=== PATIENT | male | born 1950 | race Caucasian/White ===

== ENCOUNTER → 2017-07-30 | Outpatient (CLI) | payer MEDICARE, BC | LOC: M RAD 08:34 | DX: J32.0 Chronic maxillary sinusitis (principal); J34.2 Deviated nasal septum; K09.1 Developmental (nonodontogenic) cysts of oral region | CPT/HCPCS: 70486 ==

== ENCOUNTER 2017-10-21 10:32 | Emergency (ER) | payer MEDICARE, BC ==
[2017-10-21 11:54] LABS: KETONE, URINE AUTO RFX NEGATIVE (NEGATIVE); MUCUS, URINE RFX SMALL (NEGATIVE); NITRITE, URINE AUTO RFX NEGATIVE (NEGATIVE); RBC, URINE AUTO RFX 80 /HPF (0-3); SPECIFIC GRAVITY UR AUTO RFX 1.015 (1.002-1.035); SQUAM EPITHELIAL CELL UR AURFX 0 /HPF (0-6); TRANSITIONAL EPITHELIAL AU RFX 1 /HPF
[2017-10-21 11:55] LABS: LEUKOCYTE ESTERASE UR AUTO RFX 3+ (NEGATIVE); WBC, URINE AUTO RFX TNTC /HPF (0-3)
[2017-10-21 12:13] LABS: ANION GAP 6 MEQ/L (8-16); BLOOD UREA NITROGEN 14 MG/DL (7-18); CALCIUM LEVEL 9.1 MG/DL (8.8-10.2); CARBON DIOXIDE LEVEL 26 MEQ/L (21-32); CHLORIDE LEVEL 113 MEQ/L (98-107); CREATININE FOR GFR 1.11 MG/DL (0.70-1.30); GLOMERULAR FILTRATION RATE > 60.0 (>49); GLUCOSE, FASTING 82 MG/DL (70-100); POTASSIUM SERUM 3.6 MEQ/L (3.5-5.1); SODIUM LEVEL 145 MEQ/L (136-145)
== END 2017-10-21 13:33 | disposition home or self-care (01) ==
LOC: M ED 10:32
DX: N39.0 Urinary tract infection, site not specified (principal); R31.9 Hematuria, unspecified; I10 Essential (primary) hypertension; N40.0 Benign prostatic hyperplasia without lower urinary tract symptoms; Z87.440 Personal history of urinary (tract) infections; Z86.73 Personal history of transient ischemic attack (TIA), and cerebral infarction without residual deficits; Z79.899 Other long term (current) drug therapy; Z79.890 Hormone replacement therapy; Z91.041 Radiographic dye allergy status
CPT/HCPCS: 80048

== ENCOUNTER → 2017-11-19 | Outpatient (CLI) | payer MEDICARE, BC ==
[2017-11-19 11:58] LABS: APPEARANCE, URINE CLEAR (CLEAR); BACTERIA, URINE AUTO NEGATIVE (NEGATIVE); BILIRUBIN, URINE AUTO NEGATIVE (NEGATIVE); BLOOD, URINE BLOOD NEGATIVE (NEGATIVE); COLOR, URINE YELLOW (YELLOW); GLUCOSE, URINE (UA) AUTO NEGATIVE (NEGATIVE); KETONE, URINE AUTO NEGATIVE (NEGATIVE); LEUKOCYTE ESTERASE, URINE AUTO NEGATIVE (NEGATIVE); NITRITE, URINE AUTO NEGATIVE (NEGATIVE); PROTEIN, URINE AUTO NEGATIVE (NEGATIVE); RBC, URINE AUTO 0 /HPF (0-3); SPECIFIC GRAVITY URINE AUTO 1.018 (1.002-1.035); SQUAMOUS EPITHELIAL CELL UR AU 0 /HPF (0-6); WBC, URINE AUTO 1 /HPF (0-3)
[2017-11-19 13:58] LABS: PSA SCREENING 1.49 NG/ML (< 4.0)
== END ==
LOC: M SMT 10:31
DX: N40.1 Benign prostatic hyperplasia with lower urinary tract symptoms (principal); Z12.5 Encounter for screening for malignant neoplasm of prostate; Z87.440 Personal history of urinary (tract) infections
CPT/HCPCS: G0103

== ENCOUNTER 2018-08-04 10:04 | Day surgery (SDC) | payer MEDICARE, BC ==
[~2018-08-04] VITALS: Ht 170.2 cm; Wt 78.5 kg
[2018-08-04] MEDS: NS 1,000 ML IV SCH ×2 (08:15→12:41)
[~2018-08-04 10:04] MED LIST: ACET65TA; AMLO5TAB6 PO; ATOR40TA75 PO; CIPR-249 PO; FINA5TAB2 PO; FLOM0.4C39; FLOM0.4C39 PO; HYDR-2541 PO; LEVA500T; LEVO75TA4 PO; LOPR1TAB6 PO; LOSA100T50 PO; LOTREL; METO1TAB32 PO; METO1TAB7 PO; POTA20TA2; PRAV40TA; PROS5TAB; PYRI1TAB5 PO; SYNT88TA2 PO; TAMS0.4C2 PO
[2018-08-04] MEDS ORDERED: LIDOCAINE 2% INJ 100 MG/5 ML SDV (FOR ANES.) As Ordered ONE (12:06)
[2018-08-04] MEDS ORDERED: PROPOFOL 500 MG/50 ML VIAL As Ordered ONE (12:06)
--- NOTE | 2018-08-04 12:14 | ROOR ---
Patient Name: Luisito Hollis Procedure Date: 08/04/2018 11:54 AM Date of : 1950 Age: 67 Room: [facility] Gender: Male Note Status: Finalized Procedure: Colonoscopy Indications: High risk colon cancer surveillance: Personal history of colonic polyps Providers: Dimas Mcpherson Jr, MD Referring MD: FER BAUTISTA JR, MD Requesting Provider: Medicines: Propofol per Anesthesia Complications: No immediate complications. Procedure: Pre-Anesthesia Assessment: - Prior to the procedure, a History and Physical was performed, and patient medications and allergies were reviewed. The patient is competent. The risks and benefits of the procedure and the sedation options and risks were discussed with the patient. All questions were answered and informed consent was obtained. Patient identification and proposed procedure were verified by the physician and the nurse in the pre-procedure area and in the procedure room. Mental Status Examination: alert and oriented. Airway Examination: normal oropharyngeal airway and neck mobility. Respiratory Examination: clear to auscultation. CV Examination: normal. ASA Grade Assessment: II - A patient with mild systemic disease. After reviewing the risks and benefits, the patient was deemed in satisfactory condition to undergo the procedure. The anesthesia plan was to use moderate sedation / analgesia (conscious sedation). Immediately prior to administration of medications, the patient was re-assessed for adequacy to receive sedatives. The heart rate, respiratory rate, oxygen saturations, blood pressure, adequacy of pulmonary ventilation, and response to care were monitored throughout the procedure. The physical status of the patient was re-assessed after the procedure. The Colonoscope was introduced through the anus and advanced to the cecum, identified by appendiceal orifice and ileocecal valve. The colonoscopy was performed without difficulty. The patient tolerated the procedure well. The quality of the bowel preparation was adequate. Findings: The rectum, recto-sigmoid colon, sigmoid colon, descending colon, transverse colon, cecum, appendiceal orifice and ileocecal valve appeared normal. A small polyp was found in the ascending colon. The polyp was removed with a hot snare. Resection and retrieval were complete. External and internal hemorrhoids were found during endoscopy. The hemorrhoids were moderate, Grade II (internal hemorrhoids that prolapse but reduce spontaneously) and Grade III (internal hemorrhoids that prolapse but require manual reduction). Impression: - The rectum, recto-sigmoid colon, sigmoid colon, descending colon, transverse colon, cecum, appendiceal orifice and ileocecal valve are normal. - One small polyp in the ascending colon, removed with a hot snare. Resected and retrieved. - External and internal hemorrhoids. Recommendation: - Discharge patient to home (ambulatory). - Repeat colonoscopy in 5 years for surveillance. Dimas Mcpherson MD Dimas Mcpherson Jr, MD 08/04/2018 12:14:03 PM Electronically signed by Dimas Mcpherson Jr, MD Number of Addenda: 0 Note Initiated On: 08/04/2018 11:54 AM Estimated Blood Loss: Estimated blood loss: none.
[2018-08-04 12:30] VITALS: BP 152/88
== END 2018-08-04 12:44 | disposition home or self-care (01) ==
LOC: M OPP 10:04
PROVIDERS: ATTEND Surgery
DX: D12.2 Benign neoplasm of ascending colon (principal); K64.1 Second degree hemorrhoids; K64.2 Third degree hemorrhoids; Z86.010 Personal history of colon polyps

== ENCOUNTER → 2018-10-03 | Outpatient (CLI) | payer MEDICARE, BC | LOC: M SMT 10:37 | PROVIDERS: ATTEND Nurse Practitioner Family | DX: Z12.5 Encounter for screening for malignant neoplasm of prostate (principal) | CPT/HCPCS: 36415; G0103 ==

== ENCOUNTER → 2019-02-28 | Outpatient (REF) | payer MEDICARE, BC ==
[2019-02-28 19:15] LABS: APPEARANCE, URINE CLOUDY (CLEAR); BACTERIA, URINE AUTO 1+ (NEGATIVE); BILIRUBIN, URINE AUTO NEGATIVE (NEGATIVE); BLOOD, URINE BLOOD 3+ (NEGATIVE); COLOR, URINE YELLOW (YELLOW); GLUCOSE, URINE (UA) AUTO NEGATIVE (NEGATIVE); KETONE, URINE AUTO TRACE mg/dL (NEGATIVE); LEUKOCYTE ESTERASE, URINE AUTO 3+ (NEGATIVE); MUCUS, URINE SMALL (NEGATIVE); NITRITE, URINE AUTO NEGATIVE (NEGATIVE); PROTEIN, URINE AUTO 1+ mg/dL (NEGATIVE); RBC, URINE AUTO 76 /HPF (0-3); SPECIFIC GRAVITY URINE AUTO 1.027 (1.002-1.035); SQUAMOUS EPITHELIAL CELL UR AU 0 /HPF (0-6); UROBILINOGEN, URINE AUTO 0.2 mg/dL (0.0-2.0); WBC, URINE AUTO TNTC /HPF (0-3)
== END ==
LOC: M SMT 17:30
PROVIDERS: ATTEND Nurse Practitioner Family
DX: N39.43 Post-void dribbling (principal)

== ENCOUNTER 2019-03-01 17:18 | Emergency (ER) | payer MEDICARE, BC ==
[~2019-03-01] VITALS: Ht 170.2 cm; Wt 81.8 kg
[2019-03-01 17:52] LABS: APPEARANCE, URINE TURBID (CLEAR); BACTERIA, URINE AUTO 2+ (NEGATIVE); BILIRUBIN, URINE AUTO NEGATIVE (NEGATIVE); BLOOD, URINE BLOOD 3+ (NEGATIVE); COLOR, URINE AMBER (YELLOW); GLUCOSE, URINE (UA) AUTO NEGATIVE (NEGATIVE); KETONE, URINE AUTO NEGATIVE (NEGATIVE); LEUKOCYTE ESTERASE, URINE AUTO 3+ (NEGATIVE); NITRITE, URINE AUTO NEGATIVE (NEGATIVE); PROTEIN, URINE AUTO 3+ mg/dL (NEGATIVE); RBC, URINE AUTO TNTC /HPF (0-3); SPECIFIC GRAVITY URINE AUTO 1.017 (1.002-1.035); SQUAMOUS EPITHELIAL CELL UR AU 0 /HPF (0-6); TRANSITIONAL EPITHELIAL AUTO 1 /HPF; WBC, URINE AUTO TNTC /HPF (0-3)
[2019-03-01 18:26] LABS: BASO % 0.3 % (0.0-1.0); EOS % 0.1 % (0.0-3.0); HEMATOCRIT 38.2 % (42.0-52.0); HEMOGLOBIN 13.1 g/dl (13.5-17.5); LYMPH # 1.3 10^3/uL (1.5-5.0); LYMPH % 8.5 % (24.0-44.0); MEAN CORPUSCULAR HEMOGLOBIN 32.8 pg (27.0-33.0); MEAN CORPUSCULAR HGB CONC 34.3 g/dl (32.0-36.5); MEAN CORPUSCULAR VOLUME 95.7 fl (80.0-96.0); MONO # 1.4 10^3/uL (0.0-0.8); MONO % 9.3 % (0.0-5.0); NEUTROPHILS # 12.4 10^3/uL (1.5-8.5); NEUTROPHILS % 81.3 % (36.0-66.0); PLATELET COUNT, AUTOMATED 165 10^3/uL (150-450); RED BLOOD COUNT 3.99 10^6/uL (4.30-6.10); WHITE BLOOD COUNT 15.3 10^3/uL (4.0-10.0)
[2019-03-01 18:51] LABS: ALBUMIN 3.5 GM/DL (3.2-5.2); BILIRUBIN,DIRECT 0.3 MG/DL (0.0-0.2); BILIRUBIN,TOTAL 0.9 MG/DL (0.2-1.0); TOTAL PROTEIN 6.4 GM/DL (6.4-8.2)
--- NOTE | 2019-03-01 20:58 | REPVR ---
PROCEDURE INFORMATION: Exam: US Pelvis Limited, Male Exam date and time: 03/01/2019 8:21 PM Age: 68 years old Clinical history: Bladder; Urine retention; Additional info: Difficulty urinating TECHNIQUE: Imaging protocol: Real-time pelvic ultrasound with image documentation. COMPARISON: No relevant prior studies available. FINDINGS: Bladder: Normal appearance of the distended urinary bladder with bilateral ureteral jets seen. Elevated bladder postvoid residual volume 138 cc. IMPRESSION: Elevated bladder postvoid residual volume 138 cc. Electronically signed by: Navneet Guerrero On 03/01/2019 20:57:59 PM
[2019-03-01] MEDS ORDERED: CIPR-249 PO (21:20)
[2019-03-01] MEDS ORDERED: CIPROFLOXACIN 500 MG TAB PO ONE (21:30)
[2019-03-01] MEDS ORDERED: LIDOCAINE 2% 5ML JELLY UROJET TOP ONE (21:30)
[2019-03-01 21:40] VITALS: BP 132/86
== END 2019-03-01 22:10 | disposition home or self-care (01) ==
LOC: M ED 17:18
DX: N39.0 Urinary tract infection, site not specified (principal); I10 Essential (primary) hypertension; E78.5 Hyperlipidemia, unspecified; I63.59 Cerebral infarction due to unspecified occlusion or stenosis of other cerebral artery; N40.0 Benign prostatic hyperplasia without lower urinary tract symptoms; Z86.73 Personal history of transient ischemic attack (TIA), and cerebral infarction without residual deficits; E03.9 Hypothyroidism, unspecified; Z79.899 Other long term (current) drug therapy

== ENCOUNTER → 2019-10-04 | Outpatient (CLI) | payer MEDICARE, BC | LOC: M PLALAB 10:17 | PROVIDERS: ATTEND Nurse Practitioner Family | DX: Z12.5 Encounter for screening for malignant neoplasm of prostate (principal) | CPT/HCPCS: 36415; 51798; G0103; G0463 ==

== ENCOUNTER → 2020-02-28 | Outpatient (REF) | payer MEDICARE, BC ==
[~2020-02-28] MED LIST changes: +AMLO1TAB24 PO; -AMLO5TAB6 PO
[2020-02-28 18:01] LABS: APPEARANCE, URINE TURBID (CLEAR); BACTERIA, URINE AUTO 1+ (NEGATIVE); BILIRUBIN, URINE AUTO NEGATIVE (NEGATIVE); BLOOD, URINE BLOOD 3+ (NEGATIVE); COLOR, URINE AMBER (YELLOW); GLUCOSE, URINE (UA) AUTO NEGATIVE (NEGATIVE); KETONE, URINE AUTO NEGATIVE (NEGATIVE); LEUKOCYTE ESTERASE, URINE AUTO 3+ (NEGATIVE); NITRITE, URINE AUTO NEGATIVE (NEGATIVE); PROTEIN, URINE AUTO 2+ mg/dL (NEGATIVE); RBC, URINE AUTO 99 /HPF (0-3); RENAL EPITHELIAL CELLS 2 /HPF; SPECIFIC GRAVITY URINE AUTO 1.016 (1.002-1.035); SQUAMOUS EPITHELIAL CELL UR AU 0 /HPF (0-6); TRANSITIONAL EPITHELIAL AUTO 1 /HPF; WBC, URINE AUTO TNTC /HPF (0-3)
== END ==
LOC: M SMT 17:14
PROVIDERS: ATTEND Nurse Practitioner Family
DX: N40.1 Benign prostatic hyperplasia with lower urinary tract symptoms (principal)
CPT/HCPCS: 51798; 81001; 87088; 87186; G0463

== ENCOUNTER → 2020-07-08 | Outpatient (CLI) | payer MEDICARE, BC ==
--- NOTE | 2020-07-08 13:50 | REP ---
INDICATION: F/U. COMPARISON: Latest prior comparison right hip 08/22/2011. No prior left hip for comparison. TECHNIQUE: AP pelvis standing and bilateral hip AP and frog lateral with standing AP right hip. FINDINGS: The hip prosthesis are symmetric. There is no plain film evidence of definite abnormal periprosthetic lucency seen involving either the right or left hip. There is no evidence of an acute fracture, dislocation, or subluxation. There is no change in appearance of the prostheses when static AP is compared to standing. IMPRESSION: No acute abnormality identified. Findings as described above. <Electronically signed by Cullen Jones > 07/08/20 [id number]
== END ==
LOC: M SOG 10:36
PROVIDERS: ATTEND Family Medicine
DX: Z96.643 Presence of artificial hip joint, bilateral (principal)

== ENCOUNTER 2020-08-05 10:50 | Outpatient (RCR) | payer MEDICARE, BC ==
[2020-08-14] MEDS ORDERED: OXYC1TAB23 PO ×2 (10:05→10:07)
[2020-08-14] MEDS ORDERED: NAPR-849 PO (10:05)
[2020-08-14] MEDS ORDERED: OMEP-218 PO (10:05)
[2020-08-14] MEDS ORDERED: ASPI-551 PO (10:05)
== END 2020-08-26 ==
LOC: M PT 10:50
PROVIDERS: ATTEND Orthopaedic Surgery Adult Reconstructive Orthopaedic Surgery
DX: Z51.89 Encounter for other specified aftercare (principal); Z96.643 Presence of artificial hip joint, bilateral

== ENCOUNTER → 2020-08-08 | Outpatient (CLI) | payer MEDICARE, BC | LOC: M LABSMTC 10:31 | PROVIDERS: ATTEND Anesthesiology | DX: Z01.812 Encounter for preprocedural laboratory examination (principal); Z20.822 Contact with and (suspected) exposure to COVID-19 ==

== ENCOUNTER 2020-08-13 07:53 | Inpatient (IN) | payer MEDICARE, BC ==
[2020-08-13] VITALS (7 sets, daily range): BP systolic 105–128; BP diastolic 60–70; O2SAT 93
[~2020-08-13] VITALS: Ht 170.2 cm; Wt 83.5 kg
[~2020-08-13 07:53] MED LIST changes: +ACETAMINOPHEN 500 MG TAB PO ONE; +LIDOCAINE 1% MDV 20ML VIAL SQ PRN; +LR 1,000 ML IV ONE; +NAPROXEN 250 MG TAB PO ONE; +NS 1,000 ML IV SCH; +PREGABALIN 25 MG CAP (LYRICA) PO ONE; +ROPIVA 125MG/EPINEPH 0.25MG/CLONID 40MCG/KETOR 15MG IN NS 50ML SYRINGE XX ONE; +ceFAZolin SOD 2 GM in IV 1 EA IV ONE; +dexameTHASONE 4 MG/ML 1ML VIAL (J1100 PER 1MG) IV ONE
[2020-08-13] MEDS ORDERED: TRANEXAMIC ACID INJection 1,000 MG in NS 60 ML IV ONE (09:00)
[2020-08-13] MEDS ORDERED: TRANEXAMIC ACID 100 MG/ML 10ML VIAL As Ordered ONE ×3 (11:42→13:59)
[2020-08-13] MEDS ORDERED: METOCLOPRAMIDE INJ 10MG/2ML VIAL (J2765 PER 1) As Ordered ONE ×2 (12:12→12:15)
[2020-08-13] MEDS ORDERED: ONDANSETRON 4MG/2ML VIAL As Ordered ONE (12:12)
[2020-08-13] MEDS ORDERED: MIDAZOLAM INJ 2MG/2ML VIAL (J2250 PER 1MG) As Ordered ONE (12:12)
[2020-08-13] MEDS ORDERED: dexameTHASONE 4 MG/ML 1ML VIAL (J1100 PER 1MG) As Ordered ONE ×3 (12:12→12:29)
[2020-08-13] MEDS ORDERED: LIDOCAINE 2% 100MG/5ML SDV (FOR ANES.) As Ordered ONE (12:12)
[2020-08-13] MEDS ORDERED: propofoL 200 MG/20 ML VIAL As Ordered ONE ×2 (12:12→12:29)
[2020-08-13] MEDS ORDERED: fentaNYL 250 MCG/5 ML INJECTION (J3010) As Ordered ONE (12:12)
[2020-08-13] MEDS ORDERED: ROCURONIUM BROMIDE 50 MG/5 ML VIAL As Ordered ONE (12:12)
[2020-08-13] MEDS ORDERED: SUGAMMADEX SODIUM 500 MG/5 ML VIAL (BRIDION) As Ordered ONE (12:12)
[2020-08-13] MEDS ORDERED: ePHEDrine SULFATE 25 MG/5 ML(5MG/ML) SYRINGE As Ordered ONE ×3 (12:13→14:31)
[2020-08-13] MEDS ORDERED: PHENYLephrine 500MCG 5ML (100MCG/ML) SYRINGE As Ordered ONE (14:21)
[2020-08-13] MEDS ORDERED: ONDANSETRON 4MG/2ML VIAL IV PRN ×2 (15:30→15:55)
[2020-08-13] MEDS ORDERED: fentaNYL 100 MCG/2 ML INJECTION (J3010) IV PRN (15:30)
[2020-08-13] MEDS ORDERED: oxyCODONE 5MG TAB PO PRN ×2 (15:30→15:55)
[2020-08-13] MEDS ORDERED: HYDROMORPHONE HCL 0.5 MG/ 0.5 ML SYRINGE (J1170 PER 1) IV PRN (15:30)
[2020-08-13] MEDS ORDERED: LR 1,000 ML IV SCH ×2 (15:30→15:35)
--- NOTE | 2020-08-13 15:39 | ROOPDOC ---
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 PROCEDURE: Excision and revision of scar, right hip Examination under anesthesia of acetabular component and femoral component Revision of acetabular liner Revision of femoral head SURGEON: Darci Hemphill MD MANAGER OF LOSS PREVENTION OPERATIONS: ANESTHESIA: Gen. anesthetic. ESTIMATED BLOOD LOSS: Approximately 350 mL. COMPLICATIONS: No known complications. REMARKS: Of note, the patient has had a history of a greater trochanteric fracture which was treated nonoperatively. This appeared to be a very rigid fibrous union with minimal mobility of less than 1 mm Components. [employer] [place] acetabular liner with 10 lip, 32 mm inner diameter, 60 outer diameter Femoral head 32 mm +9 Duraloc dynamic locking ring PROCEDURE NOTE: Patient was seen in the preoperative area. He had not had any change in his medical history or otherwise. His right lower extremity was marked. He was found be grossly neurovascularly intact. DESCRIPTION OF PROCEDURE: The patient was brought into the operating room and after a positive he was transferred to the operating room table in the supine position and a general anesthetic was induced. Once this was accomplished, she was transferred to the left lateral decubitus position and he was appropriately positioned with the Stulberg frame. His limbs were appropriately padded, and he had an axillary roll placed. He was then positioned with the right leg in a candycane bustillos and the right lower extremity underwent a chlorhexidine scrub followed by 2 times alcohol wash, followed by hydrogen peroxide scrub of the incision site and finally to chlorhexidine preps prior to a standard sterile prep and drape. After the sterile prep and drape. He had another chlorhexidine Y of the incision site. The original incision was demarcated with a marking pen. Surgical safety checklist was performed. The skin was incised and an ellipse of the old scar was removed. This was approximately 15-20 cm long. The skin and subcutaneous tissue were incised down to the fascia. A cautery was used to control any bleeders. The fascia was incised. There was a lot of scar tissue around this. This was cleared. The [place]dez scissors were used to open up the fascia. A Charnley retractor was placed for retraction. There was a lot of scar tissue around the greater trochanter and the abductor muscles were scarred in. This was released with electrocautery. The abductor muscles and capsule were elevated in a single layer. This took some significant findings. There is a lot of scar tissue associated with polyethylene wear and the previous surgery. A lot of the scar tissue was debrided with electrocautery. Once the joint was entered, additional scar tissue was removed and the leg was brought through to some external rotation to allow more medial access. The head was then dislocated. Some removal of scar tissue associated with the patient's previous greater trochanteric fracture treated with conservative therapy, was removed. The GT fracture. It appeared to have healed. There is some slight flexibility of less than a millimeter or so showing a rigid fibrous union. Some samples of soft tissue were taken for cultures. The head was then removed with a tamp. There is no evidence of any trunnionosis. Extensive period of time was utilized removing soft tissue from around the polyethylene liner. The polyethylene liner removal tool was then used. This had to be positioned and pressure had to be tightened on this approximately 8 times before the polyethylene was removed due to the pressure from the tool. The locking mechanism was then removed. A dental pick was used to clean out the locking mechanism ring of any backside wear material. Some of this was sent for ortho culture. There was some oozing during this. So, TXA 2 g topical was applied and let sit for 3 minutes. The new locking mechanism was placed appropriately. A replacement liner to accommodate a 32 mm head was placed with the 10 lip liner that was in there previously. This was impacted. An tested with a [place] to see if it was secure. It was not loose. The new 32 mm +9 trial head was placed and this was found to have good range of motion and stability. This was removed and the trunnion was cleansed and dried. The head was impacted. The hip was reduced and found to be stable. Thorough irrigation then occurred. The local anesthetic RACK cocktail was instilled. , A layered closure starting with #1 Vicryl to close the capsular area followed by a #1 Vicryl to close the abductors. Fascia was closed with #1 Vicryl and strata fix #1. The subcutaneous tissue was closed with #1 followed by running 2.0 and finally running 3. 0 Monocryl antibacterial. Irrigations with Betadine solution were carried out between layers. Mastisol and Steri-Strips were used to close the skin, followed by the Mepilex AG dressing.. The patient was transferred to the bed in stable condition and taken to recovery. He'll be admitted to the hospitalist service with physical therapy, etc. He will be reevaluated in the morning. I have contacted his by phone at his request. There were no known complications. DARCI HEMPHILL MD August 13, 2020 15:39
[2020-08-13 15:41] LABS: BASO % 0.3 % (0.0-1.0); EOS % 0.2 % (0.0-3.0); HEMATOCRIT 37.9 % (42.0-52.0); HEMOGLOBIN 12.7 g/dl (13.5-17.5); LYMPH # 0.9 10^3/uL (1.5-5.0); LYMPH % 9.4 % (24.0-44.0); MEAN CORPUSCULAR HGB CONC 33.5 g/dl (32.0-36.5); MEAN CORPUSCULAR VOLUME 101.3 fl (80.0-96.0); MONO # 0.2 10^3/uL (0.0-0.8); MONO % 1.7 % (2.0-8.0); NEUTROPHILS # 7.9 10^3/uL (1.5-8.5); NEUTROPHILS % 87.7 % (36.0-66.0); PLATELET COUNT, AUTOMATED 173 10^3/uL (150-450); RED BLOOD COUNT 3.74 10^6/uL (4.30-6.10)
[2020-08-13] MEDS ORDERED: MOM 30ML SUSPENSION UDC PO PRN (15:45)
[2020-08-13] MEDS ORDERED: ACETAMINOPHEN TAB 650MG DOSE (2X325MG) PO PRN (15:45)
[2020-08-13] MEDS ORDERED: MAALOX 30 ML SUSP *UDC PO PRN (15:45)
--- NOTE | 2020-08-13 15:52 | REP ---
INDICATION: S/P RIGHT HIP REVISION, PLEASE INCLUDE HARDWARE. COMPARISON: 07/08/2020 TECHNIQUE: A single AP view of the pelvis was performed. FINDINGS: Bilateral hip prosthesis are again noted. The left appears unchanged, however, the right appears more centrally aligned to the acetabulum. Examinations are technically different. No definite acute fracture number dislocation, or subluxation has developed. IMPRESSION: As above <Electronically signed by Cullen Jones > 08/13/20 [id number]
--- NOTE | 2020-08-13 15:54 | HPEPDOC ---
[facility] Medical History & Physical Date of Admission August 13, 2020 Date of Service: August 13, 2020 History and Physical Chief complaint: Who presented to [facility] for elective orthopedic procedure History of present illness: Patient is a 69-year-old male with a past medical history of bilateral hip arthroplasties completed 20-25 years ago who has presented to [facility] for elective orthopedic procedure. Patient seems primary care provider, Dr. Dell Gracia on 08/08 for medical clearance. Patient reported that over the duration of 1 year. Hes been expressing worsening right hip pain that has been limiting him from activity. Today patient had an elective right hip revision with orthopedic surgery. Patient is seen postoperatively. Currently, he denies any headache, nausea, vomiting, chest pain, shortness breath, palpitations, abdominal pain consultation, diarrhea, or urinary discomfort. He denies any recent fevers or chills. Reports his appetite is fairly normal and has experienced a slight weight gain. 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 Review of Systems: 10 point review of systems complete, all negative otherwise stated in HPI Physical exam: - Vitals: BP [141/90], HR [77], RR [20], Sat [99%RA], Temp [96.1F] - General: Lying in bed, No acute distress, Speaking in full sentences, AAOx3 - HEENT: NC, AT, PERRLA - CVS: RRR, +S1S2 - Lungs: Fair air entry bilaterally, No appreciable wheezing / rales / rhonchi - Abdomen: Soft, Non-distended, Non-tender - Extremities: No lower extremity edema, No calf tenderness, R hip with dressing in place - Neuro: No focal motor or sensory deficit - Skin: No visible rashes Labs: See below Imaging: See below EKG: See below Assessment and Plan: Right hip arthroplasty revision - Patient presented to [facility] for an elective orthopedic procedure - Has received outpatient medical cancer. His primary care provider, Dr. Dell Gracia - Pain control, anticoagulation, physical therapy and activity as per orthopedic surgery - Orthopedic surgery on consultation HTN - BP is well controlled - c/w Losartan and Amlodipine DLP - c/w Atorvastatin Hypothyroidism - c/w Levothyroxine Seasonal allergies - Currently not on any medications BPH - c/w Finasteride and Tamsulosin DVT prophylaxis - Will start TEDs/Sequentials - Chemical DVT prophylaxis as per orthopedic surgery Vital Signs Vital Signs Date Time Temp Pulse Resp B/P (MAP) Pulse Ox O2 Delivery O2 Flow Rate FiO2 08/13/20 08:19 96.1 77 20 141/90 (107) 99 Room Air Laboratory Data Labs 24H Laboratory Tests 2 08/13/20 15:29: Immature Granulocyte % (Auto) 0.7, Neutrophils (%) (Auto) 87.7H, Lymphocytes (%) (Auto) 9.4L, Monocytes (%) (Auto) 1.7L, Eosinophils (%) (Auto) 0.2, Basophils (%) (Auto) 0.3, Neutrophils # (Auto) 7.9, Lymphocytes # (Auto) 0.9L, Monocytes # (Auto) 0.2, Eosinophils # (Auto) 0.0, Basophils # (Auto) 0.0, Nucleated Red Blood Cells % (auto) 0.0 CBC/BMP Laboratory Tests 08/13/20 15:29 Microbiology Microbiology 08/13/20 Gram Stain - Final, Resulted 08/13/20 Wound Culture, Resulted Pending 08/13/20 Gram Stain - Final, Resulted 08/13/20 Wound Culture, Resulted Pending 08/13/20 Gram Stain - Final, Resulted 08/13/20 Wound Culture, Resulted Pending Home Medications Scheduled Amlodipine Besylate (Amlodipine Besylate) 5 Mg Tab, 5 MG PO QPM Atorvastatin Calcium (Atorvastatin Calcium) 40 Mg Tab, 40 MG PO QPM Finasteride (Finasteride) 5 Mg Tab, 5 MG PO DAILY Levothyroxine Sodium (Synthroid) 88 Mcg Tablet, 88 MCG PO DAILY Losartan Potassium (Losartan Potassium) 100 Mg Tab, 100 MG PO QAM Tamsulosin HCl (Flomax) 0.4 Mg Cap, 0.4 MG PO BID Allergies Coded Allergies: No Known Allergies (Unverified , 08/06/20) SIMA WILLIS MD August 13, 2020 15:54
[2020-08-13] MEDS ORDERED: SENNA 8.6 MG TAB (SENOKOT) PO PRN (15:55)
[2020-08-13] MEDS ORDERED: traMADol 50 MG TAB PO PRN ×2 (15:55)
[2020-08-13 15:57] LABS: ALBUMIN 3.5 GM/DL (3.2-5.2); ALT/SGPT 20 U/L (12-78); BILIRUBIN,TOTAL 0.7 MG/DL (0.2-1.0); BLOOD UREA NITROGEN 16 MG/DL (7-18); CARBON DIOXIDE LEVEL 22 MEQ/L (21-32); CHLORIDE LEVEL 114 MEQ/L (98-107); CREATININE FOR GFR 1.09 MG/DL (0.70-1.30); GLOMERULAR FILTRATION RATE > 60.0 (>42); GLUCOSE, FASTING 169 MG/DL (70-100); MAGNESIUM LEVEL 1.6 MG/DL (1.8-2.4); POTASSIUM SERUM 3.5 MEQ/L (3.5-5.1); SODIUM LEVEL 146 MEQ/L (136-145)
[2020-08-13] MEDS ORDERED: MAG SULF 1GM/100ML (MAG RUN) 1 GM in IV 1 EA IV ONE (16:15)
[2020-08-13] MEDS: ACETAMINOPHEN TAB 650MG DOSE (2X325MG) PO SCH ×2 (18:21→23:10)
[2020-08-13] MEDS: TAMSULOSIN 0.4 MG CAP PO SCH (20:17)
[2020-08-13] MEDS: DOCUSATE SODIUM 100MG CAPSULE PO SCH (20:17)
[2020-08-13] MEDS: NAPROXEN 250 MG TAB PO SCH (20:17)
[2020-08-13] MEDS: ceFAZolin SOD 2 GM in IV 1 EA IV SCH (20:17)
[2020-08-13] MEDS ORDERED: ATORVASTATIN 20 MG TAB PO SCH (21:00)
[2020-08-13] MEDS ORDERED: amLODIPine 5 MG TAB PO SCH (21:00)
[2020-08-13] MEDS ORDERED: DOCUSATE SODIUM 100MG CAPSULE PO SCH (21:00)
[2020-08-14 02:00] VITALS: BP 106/61
[2020-08-14] MEDS: ceFAZolin SOD 2 GM in IV 1 EA IV SCH ×2 (03:49→11:16)
[2020-08-14] MEDS: ACETAMINOPHEN TAB 650MG DOSE (2X325MG) PO SCH ×2 (05:21→11:17)
[2020-08-14 06:00] VITALS: BP 108/64
[2020-08-14] MEDS ORDERED: LEVOTHYROXINE 88MCG TABLET (0.088 MG) PO SCH (06:00)
[2020-08-14 06:32] LABS: BASO % 0.1 % (0.0-1.0); HEMATOCRIT 33.9 % (42.0-52.0); HEMOGLOBIN 11.5 g/dl (13.5-17.5); LYMPH # 0.7 10^3/uL (1.5-5.0); LYMPH % 4.9 % (24.0-44.0); MEAN CORPUSCULAR HEMOGLOBIN 33.8 pg (27.0-33.0); MEAN CORPUSCULAR HGB CONC 33.9 g/dl (32.0-36.5); MEAN CORPUSCULAR VOLUME 99.7 fl (80.0-96.0); MONO % 7.3 % (2.0-8.0); NEUTROPHILS # 11.9 10^3/uL (1.5-8.5); PLATELET COUNT, AUTOMATED 182 10^3/uL (150-450); WHITE BLOOD COUNT 13.6 10^3/uL (4.0-10.0)
[2020-08-14 07:01] LABS: BLOOD UREA NITROGEN 22 MG/DL (7-18); CALCIUM LEVEL 8.6 MG/DL (8.8-10.2); CARBON DIOXIDE LEVEL 24 MEQ/L (21-32); CHLORIDE LEVEL 109 MEQ/L (98-107); CREATININE FOR GFR 1.19 MG/DL (0.70-1.30); GLOMERULAR FILTRATION RATE > 60.0 (>42); GLUCOSE, FASTING 107 MG/DL (70-100); MAGNESIUM LEVEL 1.8 MG/DL (1.8-2.4); POTASSIUM SERUM 3.8 MEQ/L (3.5-5.1); SODIUM LEVEL 141 MEQ/L (136-145)
[2020-08-14] MEDS: DOCUSATE SODIUM 100MG CAPSULE PO SCH (08:40)
[2020-08-14] MEDS: TAMSULOSIN 0.4 MG CAP PO SCH (08:40)
[2020-08-14] MEDS: NAPROXEN 250 MG TAB PO SCH (08:40)
[2020-08-14 08:41] VITALS: BP 132/92
[2020-08-14] MEDS ORDERED: ASCORBIC ACID 500 MG TAB PO SCH (09:00)
[2020-08-14] MEDS ORDERED: LOSARTAN 50MG TABLET PO SCH (09:00)
[2020-08-14] MEDS ORDERED: FINASTERIDE 5 MG TAB PO SCH (09:00)
[2020-08-14] MEDS ORDERED: FERROUS SULFATE 325MG TAB PO SCH (09:00)
[2020-08-14] MEDS ORDERED: ASPIRIN 81MG ENTERIC TABLET PO SCH (09:00)
--- NOTE | 2020-08-14 09:02 | IPNPDOC ---
Text Note Date of Service The patient was seen on 08/14/20. NOTE Postop day 1 for head and liner revision right total hip arthroplasty The patient is doing quite well today. He states that his pain is relatively well controlled. He denies any chest pain or shortness of breath. He states that he has been up and walking with the Rollator walker independently with the nursing staff in the room this morning. He is set up at the bedside as well without any significant complaints or concerns. He does have a little bit of some thigh pain anteriorly, but overall he is doing quite well. On physical examination, the patient demonstrates grossly neurovascularly intact. Right foot and ankle. Is a palpable posterior tibial pulse. The dressing was examined. This was clean and dry without any obvious signs of staining or otherwise. X-ray imaging in PACU, was reviewed. The images did not include the entire prosthesis as I had ordered, but the acetabular components appear to be in good position. I will order a stat x-ray for the right hip prosthesis to be reviewed today. Overall, the patient is doing quite well. The plan will be for discharge home today if cleared by physical therapy. He will have home care for nursing, physical therapy and occupational therapy. He'll be seen for follow-up in the clinic in approximately 2 weeks. The dressing that is in place with stay in place for 7 days. He should try to keep this out of the stream of the shower, particularly after the dressing has been removed. Discharge Instructions Total Hip Arthroplasty 1. Pain: You may take pain as prescribed for pain. Supplement with Naproxen and Tylenol as needed. Ice pack to operative hip as tolerated. 2. Wound care: Remove dressing on postop day 7. Call [phone] with any questions or concerns. Hygiene: The patient may shower. No tub baths. Check dressing seal prior to bathing. 3. Activity: WBAT on the right lower extremity. Front wheeled walker versus crutches for ambulation. Fall precautions. Anterolateral hip precautions (NO figure of 4/crossing legs, combined external rotation/extension, combined internal rotation/abduction). 4. Driving: No driving until cleared by your surgeon. Do not drive if taking narcotic pain medications as these may make you drowsy. 5. DVT Prophylaxis: Continue taking aspirin 81 mg by mouth twice a day as prescribed for the prevention of blood clots for 4 weeks. Ankle pumps every 1 hour while awake. PANFILO hose at all times for 1 month after surgery. May remove for hygiene and wound care. 6. Placement: Plan is to discharge patient to home with home health including nursing and physical therapy. 7. Surgeon Follow-up: The patient is scheduled to be seen in Dr. Hemphill's office 2 weeks post op with xrays. 8. Primary care Follow-up: Please see your primary care provider in the next 2 to 5 weeks for general medical re-evaluation and medication review. 9. Labs: CBC without differential and BMP to be drawn on POD 3 with results to PCP and please fax to [phone]. 10. Please contact [facility] if you have any questions or concerns at [phone]. VS,Fishbone, I+O VS, Fishbone, I+O Laboratory Tests 08/13/20 15:29 08/14/20 06:05 Vital Signs Date Time Temp Pulse Resp B/P (MAP) Pulse Ox O2 Delivery O2 Flow Rate FiO2 08/14/20 06:00 97.7 66 18 108/64 (79) 98 Room Air I&O- Last 24 Hours up to 6 AM 08/14/20 06:00 Intake Total 5820 ml Output Total 750 ml Balance 5070 ml SKYLER HEMPHILL MD August 14, 2020 09:02
--- NOTE | 2020-08-14 09:06 | REP ---
INDICATION: postop x-ray evaluate for any periprosthetic fracture, other. COMPARISON: AP pelvis 08/13/2020 TECHNIQUE: AP and frog-lateral views FINDINGS: The femoral and acetabular components of the prosthesis appear well seated and well approximated. When the AP view of today's exam is compared to the AP pelvis there is no significant change. IMPRESSION: Status post right hip prosthesis as described above. <Electronically signed by Cullen Jones > 08/14/20 0902
[2020-08-14 10:00] VITALS: BP 131/90
[2020-08-14] MEDS ORDERED: ASPI-551 PO (10:05)
[2020-08-14] MEDS ORDERED: NAPR-849 PO (10:05)
[2020-08-14] MEDS ORDERED: OMEP-218 PO (10:05)
[2020-08-14] MEDS ORDERED: OXYC1TAB23 PO ×2 (10:05→10:07)
--- NOTE | 2020-08-14 10:45 | DS.PDOC ---
Discharge Summary General Date of Admission August 13, 2020 at 16:41 Date of Discharge 08/14/20 Primary Care Physician: Jr Gracia Collins Attending Physician: BRIA CHAPARRO MD Specialist/Consultants Involve: SKYLER HEMPHILL MD Discharge Summary PROCEDURES PERFORMED DURING STAY: Dr. Janelle Hemphill on 08/13/2020: - Excision and revision of scar, right hip - Examination under anesthesia of acetabular component and femoral component - Revision of acetabular liner - Revision of femoral head ADMITTING DIAGNOSES: 1. Right Hip arthroplasty revision 2. HTN 3. DLP 4. Hypothyroidism 5. Seasonal Allergies 6. BPH DISCHARGE DIAGNOSES: 1. Right Hip arthroplasty revision 2. HTN 3. DLP 4. Hypothyroidism 5. Seasonal Allergies 6. BPH COMPLICATIONS/CHIEF COMPLAINT: Failed Total Right Hip. HISTORY OF PRESENT ILLNESS: Patient is a 69 year old male with a past medical history significant for bilateral hip arthoplasties completed approximately 20-25 years ago who presented to [facility] for eleective orthopedic procedure. PAtrient was previously seen by his primary care provider, Dr. Gracia on 08/08/20 for perioperative optimization. Patient had stated that for over a year he has had worsening right hip pain that had limited his activity. The patient had been evaluated by Orthopedic surgery outpatient and was planned for a right hip revision. Patient underwent right hip revision without complication. The patient was seen post-operatively and denied any acute complaints. He was continued on pain medication and PT/OT. On post-op day one patient was doing well. He was seen by Orthopedic surgery with recommendations on discharge. He was evaluated by PT and OT prior to discharge. HOSPITAL COURSE: Right hip arthroplasty revision on 08/13/20 1. Pain: Percocet as needed for moderate to severe pain. May supplement with Naproxen and Tylenol as needed. Ice pack to operative hip as tolerated. 2. Wound care: Remove dressing on postop day 7. 3. Hygiene: May shower. No tub baths. Check dressing seal prior to bathing. 4. Activity: WBAT on the right lower extremity. Front wheeled walker versus crutches for ambulation. Anterolateral hip precautions (NO figure of 4/crossing legs, combined external rotation/extension, combined internal rotation/ab duction). 5. Driving: No driving until cleared by your surgeon. Do not drive if taking narcotic pain medications as these may make you drowsy. 6. DVT Prophylaxis: Continue taking aspirin 81 mg by mouth twice a day as prescribed for the prevention of blood clots for 4 weeks. Anticoagulation discussed with orthopedic surgery in regards to starting Xarelto. Orthopedic Surgery with recommendations to use on Aspirin BID and not Xarelto 7. Placement: Plan is to discharge patient to home with home health including nursing and physical therapy. 8. Surgeon Follow-up: The patient is scheduled to be seen in Dr. Hemphill's office 2 weeks post op with xrays. 9. Primary care Follow-up: Please see your primary care provider in the next 2 to 5 weeks for general medical re-evaluation and medication review. 10. Labs: CBC without differential and BMP to be drawn on POD 3 with results to PCP and please fax to [phone]. 11. Please contact [facility] if you have any questions or concerns at [phone]. HTN - BP is well controlled - c/w Losartan and Amlodipine DLP - c/w Atorvastatin Hypothyroidism - c/w Levothyroxine Seasonal allergies - Currently not on any medications BPH - c/w Finasteride and Tamsulosin DVT prophylaxis - Patients anticoagulation was discussed with Orthopedic Surgery in regards to starting Xarelto. - Surgical recommendation to discharge with Aspirin BID for 4 weeks and not Xarelto DISCHARGE MEDICATIONS: Please see below. ALLERGIES: Please see below. PHYSICAL EXAMINATION ON DISCHARGE: VITAL SIGNS: Please see below. GENERAL: Awake, alert ,and oriented. Appears in no acute distress. Lying comfortably in bed. HEENT: Atraumatic, normocephalic. Eyes are nonicteric. Trachea is midline NECK: No palpable cervical, axillary, or supraclavicular lymphadenopathy CARDIOVASCULAR EXAMINATION: Normal S1, S2. Regular rate and rhythm. No clicks, rubs, or murmurs RESPIRATORY EXAMINATION: Clear vesicular breath sounds bilaterally. No wheezes, rhonchi, or rhonchi. ABDOMINAL EXAMINATION: Soft, nondistended. Nontender. Normoactive bowel sounds throughout EXTREMITIES: No edema. Right hip bandaged. Full and equal pulses in bilateral upper and lower extremities SKIN: No rashes or lesions NEUROLOGICAL EXAMINATION: No focal neurological deficits PSYCHIATRIC EXAMINATION: Mood and affect appear appropriate LABORATORY DATA: Please see below. IMAGING: INDICATION: S/P RIGHT HIP REVISION, PLEASE INCLUDE HARDWARE. COMPARISON: 07/08/2020 TECHNIQUE: A single AP view of the pelvis was performed. FINDINGS: Bilateral hip prosthesis are again noted. The left appears unchanged, however, the right appears more centrally aligned to the acetabulum. Examinations are technically different. No definite acute fracture number dislocation, or subluxation has developed. IMPRESSION: As above INDICATION: postop x-ray evaluate for any periprosthetic fracture, other. COMPARISON: AP pelvis 08/13/2020 TECHNIQUE: AP and frog-lateral views FINDINGS: The femoral and acetabular components of the prosthesis appear well seated and well approximated. When the AP view of today's exam is compared to the AP pelvis there is no significant change. IMPRESSION: Status post right hip prosthesis as described above. <Electronically signed by Cullen Jones > 08/14/20901 PROGNOSIS: Good ACTIVITY: [As tolerated]; WBAT on the right lower extremity. Front wheeled walker versus crutches for ambulation. DIET: As tolerated DISCHARGE PLAN: Patient is to be discharged home with home health. He is to follow-up with Orthopedic Surgery in 2 weeks. He is to follow-up with PCP in 2-5 weeks. DVT prophylaxis was discussed with the patients Orthopedic Surgeon in regards to starting Xarelto. Recommendations to continue Aspirin BID for 4 weeks as the patient is considered lower risk for DVT DISCHARGE INSTRUCTIONS: 1. Taker Percocet as needed for moderate to severe pain. May take Tylenol and/or Naproxen as needed for mild pain. Ice pack to post-operative hip as tolerated 2. Dressings to be removed on Post-op day 7 3. Activity with weight bearing on the right lower extremity as tolerated. Front wheeled walker vs crutches for ambulation 4. No driving until re-evaluated in Orthopedic Office 5. Continue Aspirin BID for 4 weeks for DVT prophylaxis (as per Orthopedic surgery) 6. Take Omeprazole 20mg daily for GI prophylaxis while taking Naproxen/NSAIDs with Aspirin 7. Have CBC and BMP labs drawn in 2 days. Results to be forwarded to PCP and Orthopedic Office 8. Follow-up with Orthopedic Surgery in 2 weeks 9. Follow-up with PCP in 2-5 weeks DISCHARGE CONDITION: [Stable]. TIME SPENT ON DISCHARGE: Greater than 40 minutes. Vital Signs/I&Os Vital Signs Date Time Temp Pulse Resp B/P (MAP) Pulse Ox O2 Delivery O2 Flow Rate FiO2 08/14/20 08:41 132/92 08/14/20 06:00 97.7 66 18 98 Room Air I&O- Last 24 Hours up to 6 AM 08/14/20 06:00 Intake Total 5820 ml Output Total 750 ml Balance 5070 ml Laboratory Data Labs 24H Laboratory Tests 2 08/13/20 15:29: Immature Granulocyte % (Auto) 0.7, Neutrophils (%) (Auto) 87.7H, Lymphocytes (%) (Auto) 9.4L, Monocytes (%) (Auto) 1.7L, Eosinophils (%) (Auto) 0.2, Basophils (%) (Auto) 0.3, Neutrophils # (Auto) 7.9, Lymphocytes # (Auto) 0.9L, Monocytes # (Auto) 0.2, Eosinophils # (Auto) 0.0, Basophils # (Auto) 0.0, Nucleated Red Blood Cells % (auto) 0.0, Anion Gap 10, Glomerular Filtration Rate > 60.0, Calcium Level 8.0L, Magnesium Level 1.6L, Total Bilirubin 0.7, Aspartate Amino Transf (AST/SGOT) 19, Alanine Aminotransferase (ALT/SGPT) 20, Alkaline Phosphatase 94, Total Protein 6.0L, Albumin 3.5, Albumin/Globulin Ratio 1.4 08/14/20 06:05: Immature Granulocyte % (Auto) 0.7, Neutrophils (%) (Auto) 87.0H, Lymphocytes (%) (Auto) 4.9L, Monocytes (%) (Auto) 7.3, Eosinophils (%) (Auto) 0.0, Basophils (%) (Auto) 0.1, Neutrophils # (Auto) 11.9H, Lymphocytes # (Auto) 0.7L, Monocytes # (Auto) 1.0H, Eosinophils # (Auto) 0.0, Basophils # (Auto) 0.0, Nucleated Red Blood Cells % (auto) 0.0, Anion Gap 8, Glomerular Filtration Rate > 60.0, Calcium Level 8.6L, Magnesium Level 1.8 CBC/BMP Laboratory Tests 08/13/20 15:29 08/14/20 06:05 Microbiology Microbiology 08/13/20 Gram Stain - Final, Resulted 08/13/20 Wound Culture, Resulted Pending 08/13/20 Gram Stain - Final, Resulted 08/13/20 Wound Culture, Resulted Pending 08/13/20 Gram Stain - Final, Resulted 08/13/20 Wound Culture, Resulted Pending Discharge Medications Scheduled Amlodipine Besylate (Amlodipine Besylate) 5 Mg Tab, 5 MG PO QPM, (Reported) Aspirin (Aspirin EC) 81 Mg Tablet.dr, 81 MG PO BID Atorvastatin Calcium (Atorvastatin Calcium) 40 Mg Tab, 40 MG PO QPM, (Reported) Finasteride (Finasteride) 5 Mg Tab, 5 MG PO DAILY, (Reported) Levothyroxine Sodium (Synthroid) 88 Mcg Tablet, 88 MCG PO DAILY, (Reported) Losartan Potassium (Losartan Potassium) 100 Mg Tab, 100 MG PO QAM, (Reported) Naproxen (Naproxen) 250 Mg Tablet, 250 MG PO Q12H Omeprazole (Omeprazole) 20 Mg Capsule.dr, 1 CAP PO DAILY Tamsulosin HCl (Flomax) 0.4 Mg Cap, 0.4 MG PO BID, (Reported) Scheduled PRN Oxycodone HCl/Acetaminophen (Oxycodone-Acetaminophen 5-325) 1 Each Tablet, 1 TAB PO BIDP PRN for pain Allergies Coded Allergies: No Known Allergies (Unverified , 08/06/20) GME ATTESTATION GME ATTESTATION My faculty preceptor for this patient encounter was physically present during the encounter and was fully available. All aspects of the patient interview, examination, medical decision making process, and medical care plan development were reviewed and approved by the faculty preceptor. The faculty preceptor is aware and concurs with the plan as stated in the body of this note and will atte st to such by his/her cosignature. ATTENDING NOTE I, Bria Chaparro, have independently examined this patient and performed my own physical exam, as well as reviewed the documentation and edited where necessary. I have discussed in detail with the resident / student the findings and plan of treatment as documented by the resident / student and edited their note. I a gree with their findings and treatment plan and have edited their documentation. I will continue to follow the patient during this hospital stay. Time spent on discharge 35 minutes MARICARMEN BEACH DO August 14, 2020 10:45 BRIA CHAPARRO MD August 14, 2020 13:35
== END 2020-08-14 12:45 | disposition home or self-care (01) | DRG 468 ==
LOC: M SDC 07:53 → EDSTATUS 09:45 → M MS5PR 16:28 → M SDC 16:40 → M MS5PR 16:41
PROVIDERS: ADMIT Orthopaedic Surgery Adult Reconstructive Orthopaedic Surgery; ATTEND Internal Medicine
PROC: 0SR90JA Replacement of Right Hip Joint with Synthetic Substitute, Uncemented, Open Approach (ICD-10-PCS; 2020-08-13)
PROC: 0SP90JZ Removal of Synthetic Substitute from Right Hip Joint, Open Approach (ICD-10-PCS; principal; 2020-08-13 09:45)
DX: T84.060A Wear of articular bearing surface of internal prosthetic right hip joint, initial encounter (principal); I10 Essential (primary) hypertension; E03.9 Hypothyroidism, unspecified; N40.0 Benign prostatic hyperplasia without lower urinary tract symptoms; Z79.82 Long term (current) use of aspirin; Z79.899 Other long term (current) drug therapy; Z96.642 Presence of left artificial hip joint; Y83.1 Surgical operation with implant of artificial internal device as the cause of abnormal reaction of the patient, or of later complication, without mention of misadventure at the time of the procedure

== ENCOUNTER → 2020-08-16 | Outpatient (CLI) | payer MEDICARE, BC ==
[~2020-08-16] MED LIST changes: -ACETAMINOPHEN 500 MG TAB PO ONE; +ASPI-551 PO; -LIDOCAINE 1% MDV 20ML VIAL SQ PRN; -LR 1,000 ML IV ONE; +NAPR-849 PO; -NAPROXEN 250 MG TAB PO ONE; -NS 1,000 ML IV SCH; +OMEP-218 PO; +OXYC1TAB23 PO; -PREGABALIN 25 MG CAP (LYRICA) PO ONE; -ROPIVA 125MG/EPINEPH 0.25MG/CLONID 40MCG/KETOR 15MG IN NS 50ML SYRINGE XX ONE; -ceFAZolin SOD 2 GM in IV 1 EA IV ONE; -dexameTHASONE 4 MG/ML 1ML VIAL (J1100 PER 1MG) IV ONE
[2020-08-16 20:14] LABS: HEMATOCRIT 34.3 % (42.0-52.0); HEMOGLOBIN 11.2 g/dl (13.5-17.5); MEAN CORPUSCULAR HEMOGLOBIN 33.5 pg (27.0-33.0); MEAN CORPUSCULAR HGB CONC 32.7 g/dl (32.0-36.5); MEAN CORPUSCULAR VOLUME 102.7 fl (80.0-96.0); PLATELET COUNT, AUTOMATED 181 10^3/uL (150-450); RED BLOOD COUNT 3.34 10^6/uL (4.30-6.10)
[2020-08-16 20:39] LABS: BLOOD UREA NITROGEN 14 MG/DL (7-18); CALCIUM LEVEL 8.6 MG/DL (8.8-10.2); CARBON DIOXIDE LEVEL 26 MEQ/L (21-32); CHLORIDE LEVEL 114 MEQ/L (98-107); CREATININE FOR GFR 0.92 MG/DL (0.70-1.30); GLOMERULAR FILTRATION RATE > 60.0 (>42); GLUCOSE, FASTING 84 MG/DL (70-100); POTASSIUM SERUM 3.7 MEQ/L (3.5-5.1); SODIUM LEVEL 145 MEQ/L (136-145)
== END ==
LOC: M WUC 14:10
PROVIDERS: ATTEND Hospitalist
DX: Z96.641 Presence of right artificial hip joint (principal)

== ENCOUNTER → 2020-08-27 | Outpatient (CLI) | payer MEDICARE, BC ==
--- NOTE | 2020-08-27 10:50 | REP ---
INDICATION: AFTERCARE Status post arthroplasty. COMPARISON: 08/14/2020 TECHNIQUE: AP and frog-lateral views of the right hip with AP view of the pelvis FINDINGS: Evidence for prior bilateral hip replacement. Degenerative changes include hair a topic calcification and soft tissue calcifications (left greater than right) no obvious acute fracture or dislocation. Previously noted postsurgical changes surrounding the right hip have decreased. IMPRESSION: Bilateral hip replacement. Degenerative changes. <Electronically signed by Pablo Monzon > 08/27/20 1045
== END ==
LOC: M SOG 10:00
PROVIDERS: ATTEND Orthopaedic Surgery Adult Reconstructive Orthopaedic Surgery
DX: Z48.89 Encounter for other specified surgical aftercare (principal)

== ENCOUNTER → 2020-09-15 | Outpatient (REF) | payer MEDICARE, BC | LOC: M LAB REF 19:17 | PROVIDERS: ATTEND Nurse Practitioner Family | DX: N39.0 Urinary tract infection, site not specified (principal) ==

== ENCOUNTER → 2020-10-02 | Outpatient (CLI) | payer MEDICARE, BC ==
--- NOTE | 2020-10-02 11:46 | REP ---
INDICATION: UTI COMPARISON: None TECHNIQUE: Real time guerra scale ultrasound examination using curved array transducer. FINDINGS: The right renal fossa is empty and consistent with a history of donated kidney. Left kidney is normal in contour, size, echogenicity, and reniform shape without hydronephrosis, nephrolithiasis, cystic or renal mass lesion. Kidney measures 14.0 x 6.6 x 7.2 cm. IMPRESSION: Normal left kidney. Donated right kidney. <Electronically signed by Pablo Monzon > 10/02/20 1140
--- NOTE | 2020-10-02 12:05 | REP ---
INDICATION: UTI COMPARISON: None TECHNIQUE: Real time B-mode ultrasound examination using curved array transducer. FINDINGS: Bladder appears under distended despite the patient's perception of feeling bladder fullness. No significant irregular bladder wall thickening is appreciated. No obvious bladder mass identified. Absent right ureteral jet is consistent with a history of donated right kidney. Prevoid bladder measures 5.6 x 4.9 x 3.1 cm (56 cc). Postvoid bladder measures 4.5 x 2.6 x 1.8 cm (14 cc). Postvoid residual: 25% IMPRESSION: 1. Incomplete filling of the bladder warrants further evaluation and investigation. <Electronically signed by Pablo Monzon > 10/02/20 [id number]
== END ==
LOC: M RAD 10:57
PROVIDERS: ATTEND Nurse Practitioner Family
DX: N39.0 Urinary tract infection, site not specified (principal); Z52.4 Kidney donor

== ENCOUNTER → 2020-10-28 | Outpatient (CLI) | payer MEDICARE, BC ==
--- NOTE | 2020-10-28 11:52 | REP ---
INDICATION: PAIN IN LEFT HIP. COMPARISON: AP pelvis, 08/13/2020. TECHNIQUE: Three AP views of the pelvis were obtained. FINDINGS: There are bilateral total hip arthroplasties. The prosthetic femoral heads appear located the prostatic acetabula. The distal end of the femoral components are well demonstrated. There is no evidence of loosening or fracture. IMPRESSION: Normal appearing bilateral total hip arthroplasties. <Electronically signed by Killian Terrell > 10/28/20 [id number]
== END ==
LOC: M SOG 10:30
PROVIDERS: ATTEND Orthopaedic Surgery Adult Reconstructive Orthopaedic Surgery
DX: M25.552 Pain in left hip (principal); Z96.643 Presence of artificial hip joint, bilateral

== ENCOUNTER → 2021-01-29 | Outpatient (CLI) | payer MEDICARE, BC ==
--- NOTE | 2021-01-29 09:13 | REP ---
INDICATION: HIP PAIN. COMPARISON: 10/29/2019 TECHNIQUE: AP pelvis FINDINGS: Bilateral hip arthroplasties status quo. There is no evidence of significant change compared to the prior exam. There is no evidence of an acute abnormality. IMPRESSION: No evidence of significant change compared to the prior exam. <Electronically signed by Cullen Jones > 01/29/21 0910
== END ==
LOC: M SOG 07:48
PROVIDERS: ATTEND Orthopaedic Surgery Adult Reconstructive Orthopaedic Surgery
DX: Z96.641 Presence of right artificial hip joint (principal); M25.552 Pain in left hip

== ENCOUNTER → 2021-01-30 | Outpatient (CLI) | payer MEDICARE, BC ==
--- NOTE | 2021-01-30 12:16 | REP ---
INDICATION: RT SHOULDER PAIN. COMPARISON: None. 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 The glenohumeral relationship is within normal limits. There is no evidence of an acute fracture, dislocation, or subluxation on this limited exam. IMPRESSION: As above. <Electronically signed by Cullen Jones > 01/30/21 1069
== END ==
LOC: M SOG 08:17
PROVIDERS: ATTEND Orthopaedic Surgery
DX: M19.011 Primary osteoarthritis, right shoulder (principal)

== ENCOUNTER → 2021-07-10 | Outpatient (CLI) | payer MEDICARE, BC ==
[~2021-07-10] MED LIST changes: +LOSA100T45 PO; -LOSA100T50 PO; +OMEP-173 PO; -OMEP-218 PO
== END ==
LOC: M SOG 07:58
PROVIDERS: ATTEND Orthopaedic Surgery Adult Reconstructive Orthopaedic Surgery
DX: M25.552 Pain in left hip (principal)

== ENCOUNTER → 2021-07-31 | Outpatient (CLI) | payer MEDICARE, BC | LOC: M LABSMTC 10:09 | PROVIDERS: ATTEND Anesthesiology | DX: Z01.812 Encounter for preprocedural laboratory examination (principal); Z20.822 Contact with and (suspected) exposure to COVID-19 ==

== ENCOUNTER 2021-08-05 05:58 | Observation (INO) | payer MEDICARE, BC ==
[2021-08-05] VITALS (9 sets, daily range): BP systolic 119–157; BP diastolic 74–97
[~2021-08-05] VITALS: Ht 170.2 cm; Wt 81.8 kg
[2021-08-05] MEDS ORDERED: PREGABALIN 25 MG CAP (LYRICA) PO ONE (06:00)
[2021-08-05] MEDS ORDERED: NS 1,000 ML IV ONE (06:00)
[2021-08-05] MEDS ORDERED: dexameTHASONE 4 MG/ML 1ML VIAL (J1100 PER 1MG) IV ONE (06:00)
[2021-08-05] MEDS ORDERED: ACETAMINOPHEN 500 MG TAB PO ONE (06:00)
[2021-08-05] MEDS ORDERED: LR 1,000 ML IV ONE (06:00)
[2021-08-05] MEDS ORDERED: ROPIVA 125MG/EPINEPH 0.25MG/CLONID 40MCG/KETOR 15MG IN NS 50ML SYRINGE PA ONE (06:00)
[2021-08-05] MEDS ORDERED: NAPROXEN 250 MG TAB PO ONE (06:00)
[2021-08-05] MEDS ORDERED: ceFAZolin SOD 2 GM in IV 1 EA IV ONE (06:00)
[2021-08-05] MEDS ORDERED: propofoL 200 MG/20 ML VIAL As Ordered ONE (07:18)
[2021-08-05] MEDS ORDERED: LIDOCAINE 2% 100MG/5ML SDV (FOR ANES.) As Ordered ONE (07:18)
[2021-08-05] MEDS ORDERED: ROCURONIUM BROMIDE 50 MG/5 ML VIAL As Ordered ONE ×2 (07:18→09:06)
[2021-08-05] MEDS ORDERED: MIDAZOLAM INJ 2MG/2ML VIAL (J2250 PER 1MG) As Ordered ONE (07:18)
[2021-08-05] MEDS ORDERED: fentaNYL 250 MCG/5 ML INJECTION As Ordered ONE (07:18)
[2021-08-05] MEDS ORDERED: TRANEXAMIC ACID 100 MG/ML 10ML VIAL As Ordered ONE (07:22)
[2021-08-05] MEDS ORDERED: ePHEDrine SULFATE 25 MG/5 ML(5MG/ML) SYRINGE As Ordered ONE (08:50)
[2021-08-05] MEDS ORDERED: ACETAMINOPHEN 1000MG 100ML IV BTL (OFIRMEV) (J0131 PER 10MG) As Ordered ONE (09:07)
[2021-08-05] MEDS ORDERED: SUGAMMADEX SODIUM 500 MG/5 ML VIAL (BRIDION) As Ordered ONE (09:11)
[2021-08-05] MEDS ORDERED: HYDROmorphone HCL 2MG/ML 1ML VIAL As Ordered ONE (10:10)
[2021-08-05] MEDS ORDERED: PERCOCET 5MG/325MG TAB PO PRN (11:15)
[2021-08-05] MEDS ORDERED: LR 1,000 ML IV SCH ×2 (11:15)
[2021-08-05] MEDS ORDERED: ONDANSETRON 4MG/2ML VIAL IV PRN ×2 (11:15)
[2021-08-05] MEDS ORDERED: fentaNYL 100 MCG/2 ML INJECTION IV PRN (11:15)
[2021-08-05] MEDS ORDERED: SENNA 8.6 MG TAB (SENOKOT) PO PRN (11:20)
[2021-08-05] MEDS ORDERED: oxyCODONE 5MG TAB PO PRN ×2 (11:20)
[2021-08-05] MEDS ORDERED: traMADol 50 MG TAB PO PRN (11:20)
[2021-08-05] MEDS ORDERED: MAALOX 30 ML SUSP *UDC PO PRN (12:25)
[2021-08-05 13:01] LABS: BASO % 0.2 % (0.0-1.0); EOS % 0.1 % (0.0-3.0); HEMOGLOBIN 11.9 g/dl (13.5-17.5); LYMPH # 0.6 10^3/uL (1.5-5.0); LYMPH % 6.5 % (24.0-44.0); MEAN CORPUSCULAR HEMOGLOBIN 35.1 pg (27.0-33.0); MEAN CORPUSCULAR VOLUME 103.2 fl (80.0-96.0); MONO # 0.2 10^3/uL (0.0-0.8); MONO % 2.2 % (2.0-8.0); NEUTROPHILS # 8.4 10^3/uL (1.5-8.5); NEUTROPHILS % 90.6 % (36.0-66.0); PLATELET COUNT, AUTOMATED 185 10^3/uL (150-450); RED BLOOD COUNT 3.39 10^6/uL (4.30-6.10); WHITE BLOOD COUNT 9.3 10^3/uL (4.0-10.0)
[2021-08-05] MEDS: LOSARTAN 50MG TABLET PO SCH (13:10)
[2021-08-05 13:23] LABS: ALBUMIN 3.4 GM/DL (3.2-5.2); ALT/SGPT 17 U/L (12-78); BILIRUBIN,TOTAL 0.4 MG/DL (0.2-1.0); BLOOD UREA NITROGEN 17 MG/DL (7-18); C REACTIVE PROTEIN QUANTITATIV 0.56 MG/DL (0.00-0.30); CALCIUM LEVEL 8.7 MG/DL (8.8-10.2); CARBON DIOXIDE LEVEL 25 MEQ/L (21-32); CHLORIDE LEVEL 116 MEQ/L (98-107); CREATININE FOR GFR 1.09 MG/DL (0.70-1.30); GLOMERULAR FILTRATION RATE > 60.0 (>42); GLUCOSE, FASTING 138 MG/DL (70-100); MAGNESIUM LEVEL 1.8 MG/DL (1.8-2.4); POTASSIUM SERUM 3.4 MEQ/L (3.5-5.1); SODIUM LEVEL 145 MEQ/L (136-145); TOTAL PROTEIN 6.5 GM/DL (6.4-8.2)
[2021-08-05] MEDS: ACETAMINOPHEN TAB 650MG DOSE (2X325MG) PO SCH (17:04)
[2021-08-05] MEDS: ceFAZolin SOD 2 GM in IV 1 EA IV SCH (17:05)
[2021-08-05] MEDS: TAMSULOSIN 0.4 MG CAP PO SCH (21:00)
[2021-08-05] MEDS: DOCUSATE SODIUM 100MG CAPSULE PO SCH (21:00)
[2021-08-05] MEDS ORDERED: amLODIPine 5 MG TAB PO SCH (21:00)
[2021-08-05] MEDS ORDERED: ATORVASTATIN 20 MG TAB PO SCH (21:00)
[2021-08-05] MEDS: ASPIRIN 81MG ENTERIC TABLET PO SCH (21:06)
[2021-08-05] MEDS: NAPROXEN 250 MG TAB PO SCH (21:07)
[2021-08-06] MEDS: ceFAZolin SOD 2 GM in IV 1 EA IV SCH (00:16)
[2021-08-06] MEDS: ACETAMINOPHEN TAB 650MG DOSE (2X325MG) PO SCH ×3 (00:16→12:28)
[2021-08-06 02:00] VITALS: BP 128/75
[2021-08-06 06:00] VITALS: BP 134/76
[2021-08-06] MEDS ORDERED: LEVOTHYROXINE 88MCG TABLET (0.088 MG) PO SCH (06:00)
[2021-08-06 06:35] LABS: BASO % 0.1 % (0.0-1.0); EOS % 0.1 % (0.0-3.0); HEMATOCRIT 30.3 % (42.0-52.0); HEMOGLOBIN 10.6 g/dl (13.5-17.5); LYMPH # 1.1 10^3/uL (1.5-5.0); LYMPH % 8.9 % (24.0-44.0); MEAN CORPUSCULAR HEMOGLOBIN 35.3 pg (27.0-33.0); MONO % 13.2 % (2.0-8.0); NEUTROPHILS # 9.9 10^3/uL (1.5-8.5); NEUTROPHILS % 77.2 % (36.0-66.0); PLATELET COUNT, AUTOMATED 184 10^3/uL (150-450); WHITE BLOOD COUNT 12.8 10^3/uL (4.0-10.0)
[2021-08-06 06:55] LABS: BLOOD UREA NITROGEN 16 MG/DL (7-18); C REACTIVE PROTEIN QUANTITATIV 1.73 MG/DL (0.00-0.30); CALCIUM LEVEL 9.1 MG/DL (8.8-10.2); CARBON DIOXIDE LEVEL 23 MEQ/L (21-32); CHLORIDE LEVEL 114 MEQ/L (98-107); GLOMERULAR FILTRATION RATE > 60.0 (>42); GLUCOSE, FASTING 113 MG/DL (70-100); POTASSIUM SERUM 3.6 MEQ/L (3.5-5.1); SODIUM LEVEL 143 MEQ/L (136-145)
[2021-08-06 07:32] LABS: MONO # 1.7 10^3/uL (0.0-0.8)
[2021-08-06] MEDS ORDERED: ASCORBIC ACID 500 MG TAB PO SCH (09:00)
[2021-08-06] MEDS ORDERED: FERROUS SULFATE 325MG TAB PO SCH (09:00)
[2021-08-06] MEDS ORDERED: FINASTERIDE 5MG TAB PO SCH (09:00)
[2021-08-06] MEDS: DOCUSATE SODIUM 100MG CAPSULE PO SCH (09:00)
[2021-08-06 09:02] VITALS: BP 134/76
[2021-08-06] MEDS: TAMSULOSIN 0.4 MG CAP PO SCH (09:02)
[2021-08-06] MEDS: LOSARTAN 50MG TABLET PO SCH (09:02)
[2021-08-06] MEDS: ASPIRIN 81MG ENTERIC TABLET PO SCH (09:02)
[2021-08-06] MEDS: NAPROXEN 250 MG TAB PO SCH (09:03)
[2021-08-06] MEDS ORDERED: OXYC-517 PO (11:55)
[2021-08-06] MEDS ORDERED: SENN18TA PO (11:55)
[2021-08-06] MEDS ORDERED: TRAM50TA2 PO (11:55)
[2021-08-06] MEDS ORDERED: ACET1TAB55 PO (11:55)
[2021-08-06] MEDS ORDERED: ASPI-551 PO (11:55)
== END 2021-08-06 14:20 | disposition home health service (06) ==
LOC: M SDC 05:58 → M MS5PR 05:59
PROVIDERS: ADMIT Family Medicine; ATTEND Family Medicine
DX: T84.091A Other mechanical complication of internal left hip prosthesis, initial encounter (principal); I10 Essential (primary) hypertension; E78.5 Hyperlipidemia, unspecified; E03.9 Hypothyroidism, unspecified; N40.0 Benign prostatic hyperplasia without lower urinary tract symptoms; J30.2 Other seasonal allergic rhinitis; Z79.899 Other long term (current) drug therapy
CPT/HCPCS: 27134; 36415; 72170; 80048; 80053; 83735; 84145; 85025; 86140; 87070; 87075; 87205; 96365; 96366; 97116; 97161; 97165; 97530; 97535; C1776; G0378; J0131; J0690; J1170; J2250; J3010

== ENCOUNTER → 2021-08-10 | Outpatient (REF) | payer MEDICARE, BC ==
[~2021-08-10] MED LIST changes: +ACET1TAB55 PO; +OXYC-517 PO; +SENN18TA PO; +TRAM50TA2 PO
[2021-08-10 15:08] LABS: BASO % 0.6 % (0.0-1.0); EOS # 0.2 10^3/uL (0.0-0.5); EOS % 2.7 % (0.0-3.0); HEMATOCRIT 32.2 % (42.0-52.0); HEMOGLOBIN 10.7 g/dl (13.5-17.5); LYMPH # 1.2 10^3/uL (1.5-5.0); LYMPH % 17.3 % (24.0-44.0); MEAN CORPUSCULAR HEMOGLOBIN 34.7 pg (27.0-33.0); MEAN CORPUSCULAR HGB CONC 33.2 g/dl (32.0-36.5); MEAN CORPUSCULAR VOLUME 104.5 fl (80.0-96.0); MONO # 0.7 10^3/uL (0.0-0.8); MONO % 9.4 % (2.0-8.0); NEUTROPHILS # 4.9 10^3/uL (1.5-8.5); NEUTROPHILS % 68.9 % (36.0-66.0); PLATELET COUNT, AUTOMATED 242 10^3/uL (150-450); RED BLOOD COUNT 3.08 10^6/uL (4.30-6.10); WHITE BLOOD COUNT 7.1 10^3/uL (4.0-10.0)
== END ==
LOC: M SHH 14:42
PROVIDERS: ATTEND Orthopaedic Surgery Adult Reconstructive Orthopaedic Surgery
DX: Z79.899 Other long term (current) drug therapy (principal)

== ENCOUNTER → 2021-08-19 | Outpatient (CLI) | payer MEDICARE, BC | LOC: M SOG 08:18 | PROVIDERS: ATTEND Orthopaedic Surgery Adult Reconstructive Orthopaedic Surgery | DX: Z96.643 Presence of artificial hip joint, bilateral (principal) ==

== ENCOUNTER → 2021-09-17 | Outpatient (CLI) | payer MEDICARE, BC | LOC: M SOG 08:20 | PROVIDERS: ATTEND Orthopaedic Surgery | DX: M25.812 Other specified joint disorders, left shoulder (principal) ==

== ENCOUNTER → 2021-09-25 | Outpatient (RCR) | payer MEDICARE, BC | LOC: M PT 11:14 | PROVIDERS: ATTEND Orthopaedic Surgery Adult Reconstructive Orthopaedic Surgery | DX: Z47.89 Encounter for other orthopedic aftercare (principal); Z96.642 Presence of left artificial hip joint ==

== ENCOUNTER 2021-10-01 01:00 | Outpatient (RCR) | payer MEDICARE, BC | END 2021-10-26 | LOC: M PT 01:00 | PROVIDERS: ATTEND Orthopaedic Surgery Adult Reconstructive Orthopaedic Surgery | DX: Z96.642 Presence of left artificial hip joint (principal) ==

== ENCOUNTER → 2022-02-09 | Outpatient (REF) | payer MEDICARE, BC ==
[2022-02-09 21:00] LABS: FOLATE 11.9 NG/ML
== END ==
LOC: M LAB REF 16:37
PROVIDERS: ATTEND Internal Medicine
DX: G60.9 Hereditary and idiopathic neuropathy, unspecified (principal)

== ENCOUNTER → 2022-05-06 | Outpatient (CLI) | payer MEDICARE, BC | LOC: M SOG 09:12 | PROVIDERS: ATTEND Orthopaedic Surgery | DX: M19.011 Primary osteoarthritis, right shoulder (principal) ==

== ENCOUNTER → 2022-05-11 | Outpatient (CLI) | payer MEDICARE, BC | LOC: M PLAIMG 11:05 | PROVIDERS: ATTEND Orthopaedic Surgery | DX: M75.101 Unspecified rotator cuff tear or rupture of right shoulder, not specified as traumatic (principal); M19.011 Primary osteoarthritis, right shoulder ==

== ENCOUNTER → 2022-10-23 | Outpatient (REF) | payer MEDICARE, BC ==
[~2022-10-23] MED LIST changes: -LOSA100T45 PO; +LOSA100T46 PO; +SENN-111 PO; -SENN18TA PO
[2022-10-23 17:52] LABS: APPEARANCE, URINE TURBID (CLEAR); BACTERIA, URINE AUTO 1+ (NEGATIVE); BILIRUBIN, URINE AUTO NEGATIVE (NEGATIVE); BLOOD, URINE BLOOD 3+ (NEGATIVE); COLOR, URINE AMBER (YELLOW); GLUCOSE, URINE (UA) AUTO NEGATIVE (NEGATIVE); KETONE, URINE AUTO NEGATIVE (NEGATIVE); LEUKOCYTE ESTERASE, URINE AUTO 3+ (NEGATIVE); MUCUS, URINE LARGE (NEGATIVE); NITRITE, URINE AUTO NEGATIVE (NEGATIVE); PROTEIN, URINE AUTO 2+ mg/dL (NEGATIVE); RBC, URINE AUTO TNTC /HPF (0-3); SPECIFIC GRAVITY URINE AUTO 1.024 (1.002-1.035); SQUAMOUS EPITHELIAL CELL UR AU 0 /HPF (0-6); WBC, URINE AUTO TNTC /HPF (0-3)
== END ==
LOC: M LABSMT 13:01
PROVIDERS: ATTEND Urology
DX: N39.43 Post-void dribbling (principal)

== ENCOUNTER → 2023-06-10 | Outpatient (REF) | payer MEDICARE, BC ==
[2023-06-10 14:51] LABS: VITAMIN B12 LEVEL 88 PG/ML (211-911)
[2023-06-10 14:55] LABS: FOLATE > 24.0 NG/ML (>5.4)
== END ==
LOC: M LAB REF 12:19
PROVIDERS: ATTEND Internal Medicine
DX: G60.9 Hereditary and idiopathic neuropathy, unspecified (principal)

== ENCOUNTER → 2023-06-14 | Outpatient (CLI) | payer MEDICARE, BC | LOC: M EKG 09:23 | PROVIDERS: ATTEND Internal Medicine | DX: R55 Syncope and collapse (principal) ==

== ENCOUNTER → 2023-06-14 | Outpatient (CLI) | payer MEDICARE, BC | LOC: M RAD 12:59 | PROVIDERS: ATTEND Internal Medicine | DX: G45.3 Amaurosis fugax (principal) ==

== ENCOUNTER → 2023-06-25 | Outpatient (CLI) | payer MEDICARE, BC | LOC: M PLARAD 09:56 | PROVIDERS: ATTEND Internal Medicine | DX: G45.3 Amaurosis fugax (principal) ==

== ENCOUNTER → 2023-07-26 | Outpatient (REF) | payer MEDICARE, BC | LOC: M LAB REF 12:09 | PROVIDERS: ATTEND Internal Medicine | DX: G60.9 Hereditary and idiopathic neuropathy, unspecified (principal) ==

== ENCOUNTER → 2023-08-30 | Outpatient (REF) | payer MEDICARE, BC | LOC: M LAB REF 13:17 | PROVIDERS: ATTEND Internal Medicine | DX: D51.9 Vitamin B12 deficiency anemia, unspecified (principal) ==

== ENCOUNTER → 2023-10-20 | Outpatient (REF) | payer MEDICARE, BC | LOC: M LAB REF 13:25 | PROVIDERS: ATTEND Internal Medicine | DX: D51.9 Vitamin B12 deficiency anemia, unspecified (principal) ==

== ENCOUNTER → 2023-11-30 | Outpatient (REF) | payer MEDICARE, BC | LOC: M LAB REF 16:53 | PROVIDERS: ATTEND Internal Medicine | DX: D50.9 Iron deficiency anemia, unspecified (principal) ==

== ENCOUNTER → 2023-12-15 | Outpatient (REF) | payer MEDICARE, BC ==
[2023-12-15 12:58] LABS: APPEARANCE, URINE HAZY (CLEAR); BACTERIA, URINE AUTO 2+ (NEGATIVE); BILIRUBIN, URINE AUTO NEGATIVE (NEGATIVE); BLOOD, URINE BLOOD 2+ (NEGATIVE); COLOR, URINE YELLOW (YELLOW); GLUCOSE, URINE (UA) AUTO NEGATIVE (NEGATIVE); KETONE, URINE AUTO NEGATIVE (NEGATIVE); LEUKOCYTE ESTERASE, URINE AUTO 3+ (NEGATIVE); NITRITE, URINE AUTO NEGATIVE (NEGATIVE); PROTEIN, URINE AUTO NEGATIVE (NEGATIVE); RBC, URINE AUTO 21 /HPF (0-3); SPECIFIC GRAVITY URINE AUTO 1.014 (1.002-1.035); SQUAMOUS EPITHELIAL CELL UR AU 0 /HPF (0-6); WBC, URINE AUTO TNTC /HPF (0-3)
== END ==
LOC: M SMT 12:36
PROVIDERS: ATTEND Urology
DX: R30.0 Dysuria (principal)

== ENCOUNTER → 2023-12-24 | Outpatient (REF) | payer MEDICARE, BC ==
[2023-12-24 13:12] LABS: APPEARANCE, URINE CLOUDY (CLEAR); BACTERIA, URINE AUTO 1+ (NEGATIVE); BILIRUBIN, URINE AUTO NEGATIVE (NEGATIVE); BLOOD, URINE BLOOD 2+ (NEGATIVE); COLOR, URINE YELLOW (YELLOW); GLUCOSE, URINE (UA) AUTO NEGATIVE (NEGATIVE); KETONE, URINE AUTO NEGATIVE (NEGATIVE); LEUKOCYTE ESTERASE, URINE AUTO 3+ (NEGATIVE); MUCUS, URINE SMALL (NEGATIVE); NITRITE, URINE AUTO NEGATIVE (NEGATIVE); PROTEIN, URINE AUTO NEGATIVE (NEGATIVE); RBC, URINE AUTO 4 /HPF (0-3); SPECIFIC GRAVITY URINE AUTO 1.009 (1.002-1.035); SQUAMOUS EPITHELIAL CELL UR AU 0 /HPF (0-6); UROBILINOGEN, URINE AUTO 0.2 mg/dL (0.0-2.0); WBC, URINE AUTO TNTC /HPF (0-3)
== END ==
LOC: M SMT 12:31
PROVIDERS: ATTEND Urology
DX: Z87.440 Personal history of urinary (tract) infections (principal); Z79.899 Other long term (current) drug therapy

== ENCOUNTER 2024-03-16 09:59 | Day surgery (SDC) | payer MEDICARE, BC ==
[~2024-03-16] VITALS: Ht 170.2 cm; Wt 77.3 kg
[~2024-03-16 09:59] MED LIST changes: +AMLO1TAB25 PO; +CYAN1000VL SQ; +ECOT81TA5 PO; +LEVO100T5 PO; -SENN-111 PO; +SENN-165 PO
[2024-03-16] MEDS ORDERED: propofoL 200 MG/20 ML VIAL As Ordered ONE (10:32)
[2024-03-16 10:46] VITALS: TEMP 97.8
[2024-03-16 11:04] VITALS: BP 143/85; O2SAT 97
== END 2024-03-16 11:08 | disposition home or self-care (01) ==
LOC: M OPP 09:59
PROVIDERS: ATTEND Surgery
DX: K63.5 Polyp of colon (principal); Z86.0100 Personal history of colon polyps, unspecified; I10 Essential (primary) hypertension; E78.00 Pure hypercholesterolemia, unspecified; E03.9 Hypothyroidism, unspecified; M19.90 Unspecified osteoarthritis, unspecified site; Z79.82 Long term (current) use of aspirin; Z79.890 Hormone replacement therapy; Z79.899 Other long term (current) drug therapy

== ENCOUNTER → 2024-03-20 | Outpatient (REF) | payer MEDICARE, BC | LOC: M LAB REF 16:09 | PROVIDERS: ATTEND Internal Medicine | DX: D51.9 Vitamin B12 deficiency anemia, unspecified (principal) ==

== ENCOUNTER → 2024-03-27 | Outpatient (REF) | payer MEDICARE, BC ==
[2024-03-27 13:40] LABS: APPEARANCE, URINE TURBID (CLEAR); BACTERIA, URINE AUTO 1+ (NEGATIVE); BILIRUBIN, URINE AUTO NEGATIVE (NEGATIVE); BLOOD, URINE BLOOD 3+ (NEGATIVE); COLOR, URINE AMBER (YELLOW); GLUCOSE, URINE (UA) AUTO NEGATIVE (NEGATIVE); KETONE, URINE AUTO NEGATIVE (NEGATIVE); LEUKOCYTE ESTERASE, URINE AUTO 3+ (NEGATIVE); NITRITE, URINE AUTO NEGATIVE (NEGATIVE); PROTEIN, URINE AUTO 2+ mg/dL (NEGATIVE); RBC, URINE AUTO TNTC /HPF (0-3); SPECIFIC GRAVITY URINE AUTO 1.019 (1.002-1.035); SQUAMOUS EPITHELIAL CELL UR AU 0 /HPF (0-6); TRANSITIONAL EPITHELIAL AUTO 7 /HPF; WBC, URINE AUTO TNTC /HPF (0-3)
== END ==
LOC: M SMT 12:33
PROVIDERS: ATTEND Urology
DX: R39.9 Unspecified symptoms and signs involving the genitourinary system (principal)

== ENCOUNTER → 2024-05-17 | Outpatient (REF) | payer MEDICARE, BC ==
[2024-05-17 13:57] LABS: APPEARANCE, URINE CLEAR (CLEAR); BACTERIA, URINE AUTO NEGATIVE (NEGATIVE); BILIRUBIN, URINE AUTO NEGATIVE (NEGATIVE); BLOOD, URINE BLOOD NEGATIVE (NEGATIVE); COLOR, URINE YELLOW (YELLOW); GLUCOSE, URINE (UA) AUTO NEGATIVE (NEGATIVE); KETONE, URINE AUTO NEGATIVE (NEGATIVE); LEUKOCYTE ESTERASE, URINE AUTO NEGATIVE (NEGATIVE); MUCUS, URINE SMALL (NEGATIVE); NITRITE, URINE AUTO NEGATIVE (NEGATIVE); PROTEIN, URINE AUTO NEGATIVE (NEGATIVE); RBC, URINE AUTO 0 /HPF (0-3); SPECIFIC GRAVITY URINE AUTO 1.015 (1.002-1.035); SQUAMOUS EPITHELIAL CELL UR AU 0 /HPF (0-6); WBC, URINE AUTO 1 /HPF (0-3)
== END ==
LOC: M SMT 13:05
PROVIDERS: ATTEND Urology
DX: N40.0 Benign prostatic hyperplasia without lower urinary tract symptoms (principal)

== ENCOUNTER → 2024-05-30 | Outpatient (REF) | payer MEDICARE, BC ==
[2024-05-30 14:01] LABS: AMORPHOUS SEDIMENT SMALL (NEGATIVE); APPEARANCE, URINE TURBID (CLEAR); BACTERIA, URINE AUTO 2+ (NEGATIVE); BILIRUBIN, URINE AUTO NEGATIVE (NEGATIVE); BLOOD, URINE BLOOD 3+ (NEGATIVE); COLOR, URINE YELLOW (YELLOW); GLUCOSE, URINE (UA) AUTO NEGATIVE (NEGATIVE); KETONE, URINE AUTO NEGATIVE (NEGATIVE); LEUKOCYTE ESTERASE, URINE AUTO 3+ (NEGATIVE); MUCUS, URINE SMALL (NEGATIVE); NITRITE, URINE AUTO NEGATIVE (NEGATIVE); PROTEIN, URINE AUTO 2+ mg/dL (NEGATIVE); RBC, URINE AUTO 89 /HPF (0-3); SPECIFIC GRAVITY URINE AUTO 1.019 (1.002-1.035); SQUAMOUS EPITHELIAL CELL UR AU 0 /HPF (0-6); WBC, URINE AUTO TNTC /HPF (0-3)
== END ==
LOC: M SMT 12:50
PROVIDERS: ATTEND Urology
DX: R39.9 Unspecified symptoms and signs involving the genitourinary system (principal)

== ENCOUNTER → 2025-02-05 | Outpatient (REF) | payer MEDICARE, BC ==
[~2025-02-05] MED LIST changes: +TAMS-18 PO
[2025-02-05 13:39] LABS: APPEARANCE, URINE HAZY (CLEAR); BACTERIA, URINE AUTO 1+ (NEGATIVE); BILIRUBIN, URINE AUTO NEGATIVE (NEGATIVE); BLOOD, URINE BLOOD 2+ (NEGATIVE); GLUCOSE, URINE (UA) AUTO NEGATIVE (NEGATIVE); KETONE, URINE AUTO NEGATIVE (NEGATIVE); LEUKOCYTE ESTERASE, URINE AUTO 3+ (NEGATIVE); MUCUS, URINE SMALL (NEGATIVE); NITRITE, URINE AUTO NEGATIVE (NEGATIVE); PROTEIN, URINE AUTO NEGATIVE (NEGATIVE); RBC, URINE AUTO 4 /HPF (0-3); SPECIFIC GRAVITY URINE AUTO 1.006 (1.002-1.035); SQUAMOUS EPITHELIAL CELL UR AU 0 /HPF (0-6); UROBILINOGEN, URINE AUTO 4.0 mg/dL (0.0-2.0); WBC, URINE AUTO 175 /HPF (0-3)
== END ==
LOC: M SMT 13:00
PROVIDERS: ATTEND Nurse Practitioner Family
DX: R39.9 Unspecified symptoms and signs involving the genitourinary system (principal)